=== PATIENT | female | born 1950 | race Caucasian/White ===

== ENCOUNTER 2018-04-21 20:49 | Observation (INO) | payer OTHER ==
[2018-04-21] MEDS ORDERED: MAG HYDROX/AL HYDROX/SIMETH 30 ML UNIT-DOSE CUP PO ONE (21:40)
--- NOTE | 2018-04-21 21:47 | PDOC ---
Attending Attestation - HPI HPI: 04/21/18 22:13 The patient is a 67 year old female with a significant PMH of HTN, HLD, GERD, and anxiety who presents to the emergency department with, pressure to the top of her head, malaise, fatigue and tingling to her left toes today. Patient states she was started on a course of cipro on 03/21 for a UTI. Patient reports she continued to have symptoms after and went back to the clinic and was prescribed flucanazole. Patient notes she was feeling better until three days ago when she suddenly began experiencing pressure to her lower abdomen. Patient states she took a nap today and woke up two hours ago feeling a pressure to the top of her head, tingling to her left toes, malaise, fatigued, and reports fever and chills. The patient denies chest pain, shortness of breath, and dizziness. Denies nausea, vomit, diarrhea and constipation. Denies dysuria, frequency, urgency and hematuria. Allergies: NKA Past surgical history: None reported. Social history: No reported alcohol, drug, or cigarette use. PCP: Dr. Fang <Janet Ahmadi - Last Filed: 04/21/18 22:14> - Resident Resident Name: Delfin Mejia - ED Attending Attestation I have performed the following: I have examined & evaluated the patient, The case was reviewed & discussed with the resident, I agree w/resident's findings & plan - Physicial Exam PE: 04/22/18 03:13 Agree with resident exam. Pt has generalized malaise. Heart sounds normal. Abd soft NT, ND. Pt has some epigastric malaise. Pt has no fever and no chills. She has clear lungs. Neurologically intact. - Medical Decision Making 04/22/18 00:49 Pt has an elevated CPK and CKMB. Pt has no trop elevation at this time. However, she will be monitored tonight for her symptoms of feeling generalized malaise. Pt is refusing EKGs as she states that she is allergic to the gel on the EKG stickers. I cannot force her to have an EKG. We will admit the patient to medicine Obs for serial cardiac markers <Kellie Alejandro - Last Filed: 04/22/18 03:14>
[2018-04-21] MEDS ORDERED: MAG HYDROX/AL HYDROX/SIMETH 30 ML UNIT-DOSE CUP ONE (22:00)
--- NOTE | 2018-04-21 22:16 | PDOC ---
History of Present Illness - General Chief Complaint: Weakness Stated Complaint: Weakness Time Seen by Provider: 04/21/18 21:38 History Source: Patient, Spouse - History of Present Illness Initial Comments: 67 y/o F w/PMH of HTN, HLD, GERD, osteoporosis presents to the ER for weakness. She was treated for UTI and yeast infection and finished her abx and fluconazole 2 days ago. 3 days ago pt reported having lower abdominal pressure but denies any dysuria, frequency, blood in urine. Pressure continued to increase w/o urinary symptoms until presentation. She was mainly concerned though with onset of head pressure, GERD like symptoms, L toes tingling, fevers , chills, nausea, one episode of small amount of vomit with very little blood, and generalized weakness after waking up from her nap 2 hours ago. She denies arm or leg weakness, slurred speech, confusion, facial droop, CP, SOB, dizziness , cough, sick contacts, diarrhea, constipation, blood in stool, LE edema. Pt went to [facility] for 3 months and returned on March 08. PMH: HTN, HLD, GERD, osteoporosis PSHx: hysterectomy SH: Smoked when she was "very young", no alcohol, no drugs Allergies: Codeine, Lactose Past History - Travel Traveled outside of the country in the last 30 days: No - Past Medical History Allergies/Adverse Reactions: Allergies Allergy/AdvReac Type Severity Reaction Status Date / Time codeine [Codeine] Allergy Severe Verified 04/21/18 22:04 lactose Allergy Severe Verified 04/21/18 22:04 ANIMALS Allergy Severe Swelling Uncoded 04/21/18 22:04 TAPE Allergy Intermediate Uncoded 04/21/18 22:04 Home Medications: Ambulatory Orders Amlodipine Besylate/Benazepril [Lotrel 5-20 mg Capsule] 1 each PO DAILY Calcium Carbonate/Vitamin D3 [Calcium 600+D Softgel] 1 each PO DAILY 11/19/12 Multivit-Min/FA/Lycopene/Lut [Centrum Silver Tablet] 1 each PO DAILY 11/19/12 Losartan Potassium 50 mg PO DAILY 04/21/18 Simvastatin 10 mg PO DAILY 04/21/18 Anemia: No Asthma: No Cancer: No Cardiac Disorders: No CVA: No COPD: No CHF: No Dementia: No Diabetes: No GI Disorders: Yes (ACID REFLUX) Disorders: No HTN: Yes Hypercholesterolemia: Yes Liver Disease: No Seizures: No Thyroid Disease: No - Surgical History Abdominal Surgery: Yes (uterus, rectal , and bladder prolapse repair) Appendectomy: No Cardiac Surgery: No Cholecystectomy: No Lung Surgery: No Neurologic Surgery: No Orthopedic Surgery: Yes (RT SHOULDER SURGERY) - Suicide/Smoking/Psychosocial Hx Smoking Status: No Smoking History: Former smoker Have you smoked in the past 12 months: No Number of Cigarettes Smoked Daily: 0 Information on smoking cessation initiated: No Hx Alcohol Use: No Drug/Substance Use Hx: No Substance Use Type: None Review of Systems - Review of Systems Able to Perform ROS?: Yes Constitutional: Yes: Chills, Fever, Weakness Respiratory: No: Cough, Shortness of Breath Cardiac (ROS): Yes: Chest Pain (Burning up sternum/esophagus). No: Edema, Chest Tightness ABD/GI: Yes: Other (Lower abdominal pressure) : No: Burning, Dysuria, Frequency Neurological: No: Dizziness *Physical Exam - Vital Signs Last Vital Signs Temp Pulse Resp BP Pulse Ox 98.5 F 84 18 156/74 99 04/21/18 20:50 04/21/18 20:50 04/21/18 20:50 04/21/18 20:50 04/21/18 20:50 - Physical Exam General Appearance: Yes: Nourished, Appropriately Dressed. No: Apparent Distress HEENT: positive: EOMI, Normal Voice Neck: positive: Supple Respiratory/Chest: positive: Lungs Clear, Normal Breath Sounds. negative: Respiratory Distress Cardiovascular: positive: Regular Rhythm, Regular Rate, S1, S2 Gastrointestinal/Abdominal: positive: Normal Bowel Sounds, Soft. negative: Tender Musculoskeletal: negative: CVA Tenderness, CVA Tenderness (R), CVA Tenderness (L ) Extremity: negative: Pedal Edema, Swelling Neurologic: positive: vacuum caster II-XII NML intact, Fully Oriented, Alert ED Treatment Course - LABORATORY CBC & Chemistry Diagram: 04/21/18 22:40 04/21/18 22:40 - Medications Given in the ED: ED Medications Discontinued Medications Generic Name Dose Route Start Last Admin Trade Name Freq PRN Reason Stop Dose Admin Al Hydroxide/Mg Hydroxide 30 ml 04/21/18 21:40 04/21/18 22:00 Mylanta Oral Suspension - PO 04/21/18 21:41 30 ml ONCE ONE Administration Medical Decision Making - Medical Decision Making 04/21/18 22:15 R/o [place], UTI, Flu -Ordered CBC, CMP, UA, UCx, BCx, LA, CXR PA/Lat, Flu swab. 04/21/18 22:39 -Pt reports feeling better after being given mylanta. 04/21/18 23:18 -CBC and CMP unremarkable. Trop negative. -CXR with no acute pathology noted. -UA pending. 04/22/18 00:46 Pt refused EKG. She states she had a reaction to the adhesive for EKGs in the past and would not like the EKG. UA negative. CK elevated 219 CKMB elevated 3.9 Trop negative To be placed in tele obs to rule out ACS. Microblog sent out to the [facility] Admitting. 04/22/18 01:36 Case signed out to Dr. Carlitos Coyne. Pt to be placed in tele obs. *DC/Admit/Observation/Transfer Diagnosis at time of Disposition: Chest pain - Discharge Dispostion Condition at time of disposition: Fair Decision to Admit order: Yes - Referrals Referrals: Femi Mesa MD [Primary Care Provider] - - Patient Instructions - Post Discharge Activity
[2018-04-21 22:43] LABS: BASO % 0.7 % (0-2.0); EOS % 1.7 % (0-4.5); HEMATOCRIT 41.6 % (32.4-45.2); HEMOGLOBIN 13.9 GM/dL (10.7-15.3); LYMPH % 17.1 % (8-40); MCH 29.5 pg (25.7-33.7); MCHC 33.4 g/dl (32.0-36.0); MEAN CELL VOLUME 88.2 fl (80-96); MEAN PLT VOLUME 9.4 fl (7.5-11.1); MONO % 7.4 % (3.8-10.2); NEUT % 73.1 % (42.8-82.8); PLATELET COUNT 258 K/MM3 (134-434); RBC 4.71 M/mm3 (3.60-5.2); RDW 13.1 % (11.6-15.6); WHITE BLOOD COUNT 7.2 K/mm3 (4.0-10.0)
[2018-04-21 23:13] LABS: ALBUMIN 4.2 g/dl (3.4-5.0); ALK PHOS 84 U/L (45-117); ANION GAP 10 MMOL/L (8-16); BILIRUBIN,TOTAL 0.8 mg/dL (0.2-1); BLOOD UREA NITROGEN 13 mg/dL (7-18); CALCIUM 9.1 mg/dL (8.5-10.1); CHLORIDE 100 mmol/L (98-107); CO2 27 mmol/L (21-32); CREATININE 0.6 mg/dL (0.55-1.3); GLUCOSE,RANDOM 116 mg/dL (74-106); POTASSIUM 3.7 mmol/L (3.5-5.1); SGOT/AST 32 U/L (15-37); SGPT/ALT 41 U/L (13-61); SODIUM 137 mmol/L (136-145); TOT PROT 7.8 g/dl (6.4-8.2)
[2018-04-21 23:19] LABS: URINE APPEARANCE CLEAR; URINE BILIRUBIN NEGATIVE (<2.0 mg/dL); URINE COLOR COLORLESS; URINE GLUCOSE (UA) NEGATIVE (NEGATIVE); URINE KETONE NEGATIVE (NEGATIVE); URINE LEUK ESTERASE NEGATIVE (NEGATIVE); URINE NITRITE NEGATIVE (NEGATIVE); URINE PROTEIN NEGATIVE (NEGATIVE); URINE UROBILINOGEN NEGATIVE mg/dL (0.2-1.0)
--- NOTE | 2018-04-22 01:08 | PN ---
Teaching Attending Note Name of Resident: Kandy Leiva ATTENDING PHYSICIAN STATEMENT I saw and evaluated the patient. I reviewed the resident's note and discussed the case with the resident. I agree with the resident's findings and plan as documented. SUBJECTIVE: Patient is a 67 year old woman with PMH of HTN, HLD, GERD, osteoporosis presents to the ER for weakness. She was treated for UTI and yeast infection and finished her antibiotics and fluconazole 2 days ago. 3 days ago patient reported having lower abdominal pressure but denies any dysuria, frequency, blood in urine. Pressure continued to increase w/o urinary symptoms until presentation. She was mainly concerned though with onset of head pressure, GERD like symptoms, L toes tingling, fevers, chills, nausea, one episode of small amount of vomit with very little blood, and generalized weakness after waking up from her nap 2 hours ago. She denies arm or leg weakness, slurred speech, confusion, facial droop, CP, SOB, cough, sick contacts, diarrhea, constipation, blood in stool, LE edema. Says she has been dizzy with brief bout of SOB as per . She went to [facility] for 3 months and returned on March 08. OBJECTIVE: Alert Vital Signs Period Temp Pulse Resp BP Sys/Murray Pulse Ox Last 24 Hr 98.3 F-98.5 F 75-84 18-18 126-156/70-74 98-99 HEENT: No Jaundice, eye redness or discharge, PERRLA, EOMI. Normocephalic, atraumatic. External ears are normal and hearing is grossly intact. No nasal discharge. Neck: Supple, nontender. No palpable adenopathy or thyromegaly. No JVD Chest: Good effort. Clear to auscultation and percussion. Heart: Regular. No S3, rub or murmur Abdomen: Not distended, soft, nontender and no HSM. No rebound or guarding. Normoactive bowel sounds. Ext: Peripheral pulses intact. No leg edema. Skin: Warm and dry. No petechiae, rash or ecchymosis. Neuro: Alert. Oriented x3. CN 2-12 grossly intact. Sensation grossly intact in all four extremities and DTR are symmetric. Home Medications Medication Instructions Recorded Amlodipine Besylate/Benazepril 1 each PO DAILY 11/19/12 [Lotrel 5-20 mg Capsule] Calcium Carbonate/Vitamin D3 1 each PO DAILY 11/19/12 [Calcium 600+D Softgel] Multivit-Min/FA/Lycopene/Lut 1 each PO DAILY 11/19/12 [Centrum Silver Tablet] Losartan Potassium 50 mg PO DAILY 04/21/18 Simvastatin 10 mg PO DAILY 04/21/18 Abnormal Lab Results 04/21/18 04/21/18 22:40 23:12 Random Glucose 116 H Creatine Kinase 219 H CK-MB (CK-2) 3.9 H Ur Specific [place] 1.003 L ASSESSMENT AND PLAN: 1. Dizziness and weakness - No evidence of active infection or incompletely treated UTI. For elevated CK-MB and nonspecific changes on EKG, will admit to telemetry to rule out ACS, though initial troponin is negative. Get ECHO, head CT and carotid doppler. 2. DVT prophylaxis - Lovenox 40 mg SQ q 24 hours. 3. Advance directives - Full code
--- NOTE | 2018-04-22 04:54 | HP ---
CHIEF COMPLAINT: dizziness and lower abdominal pain PCP: Dr. Fang HISTORY OF PRESENT ILLNESS: 67F w/ pmhx of HTN, HLD, GERD, anxiety presents w/ complaints of dizziness and lower abdominal pain. Pt states that she drank cranberry juice for the first time, laid down, and started to experience dizziness, chills, and nausea. Afterwards, she stood up to start cooking, then started experiencing some head pressure/discomfort. During this time, her was with her and stated she had the chills and was sob. Pt also admits to neck pain and lower abdominal pain. Denies vision changes, fever, vomiting, urinary/bowel symptoms, leg swelling, problems walking. ER course was notable for: (1) CK 219, CK-MB 3.9, Trop <0.02 (2) Mylanta given (3) Blood/urine cultures ordered Recent Travel: Recently traveled [facility], returned 02/23 PAST MEDICAL HISTORY: HLD HTN GERD Anxiety PAST SURGICAL HISTORY: Abdominal hysterectomy Lumpectomy in b/l breasts R shoulder sx Social History: Smoking: Former smoker, hasn't smoked in many years Alcohol: Denies Drugs: Denies Family History: Sister: Brain aneurysm, heart disease Older sister: heart disease Allergies codeine [Codeine] Allergy (Severe, Verified 04/21/18 22:04) " CHILLS " lactose Allergy (Severe, Verified 04/21/18 22:04) CHILLS ANIMALS Allergy (Severe, Uncoded 04/21/18 22:04) Swelling TAPE Allergy (Intermediate, Uncoded 04/21/18 22:04) SKIN IS SENSITIVE. HOME MEDICATIONS: Home Medications Medication Instructions Recorded Losartan Potassium 50 mg PO BID 04/21/18 Simvastatin 10 mg PO DAILY 04/21/18 Amlodipine Besylate 10 mg PO DAILY 04/22/18 REVIEW OF SYSTEMS CONSTITUTIONAL: +chills Absent: fever, diaphoresis, generalized weakness, malaise, loss of appetite, weight change HEENT: Absent: rhinorrhea, nasal congestion, throat pain, throat swelling, difficulty swallowing, mouth swelling, ear pain, eye pain, visual changes CARDIOVASCULAR: Absent: chest pain, syncope, palpitations, irregular heart rate, lightheadedness , peripheral edema RESPIRATORY: Absent: cough, shortness of breath, dyspnea with exertion GASTROINTESTINAL: abdominal pain Absent: abdominal distension, nausea, vomiting, diarrhea, constipation, melena, hematochezia GENITOURINARY: Absent: dysuria, frequency, urgency, hesitancy, hematuria, flank pain, genital pain MUSCULOSKELETAL: +neck pain Absent: myalgia, arthralgia, joint swelling, back pain, ENDOCRINE: Absent: unexplained weight gain, unexplained weight loss, heat intolerance, cold intolerance NEUROLOGIC: +head pressure, dizziness Absent: headache, focal weakness or paresthesias,, unsteady gait, bladder or bowel incontinence PSYCHIATRIC: Absent: anxiety, depression, suicidal or homicidal ideation, hallucinations. PHYSICAL EXAMINATION Vital Signs - 24 hr 04/21/18 04/21/18 20:50 23:39 Temperature 98.5 F 98.3 F Pulse Rate 84 Pulse Rate [ 75 Left Radial] Respiratory 18 18 Rate Blood Pressure 156/74 Blood Pressure 126/70 [Right Arm] O2 Sat by Pulse 99 98 Oximetry (%) GENERAL: AAOx3. NAD. Resting comfortably. HEENT: AT/NC. EOMI. YOSELIN. Moist mucus membranes. NECK: Supple, no LAD/JVD. No point tenderness. LUNGS: CTA B/L. No w/r/r noted. Symmetric chest rise. No accessory muscle use. HEART: RRR. Normal S1, S2. No murmurs noted. ABDOMEN: Soft, ND. Tender to deep palpation below umbilicus. +BS in all 4 Q's. No masses or bruits noted. MUSCULOSKELETAL: No pedal edema. 5/5 muscle strength in b/l u/l extremities. NEUROLOGICAL: Normal speech. CN II-XII intact. PSYCHIATRIC: Cooperative. Good eye contact. Appropriate mood and affect. SKIN: Warm, dry, normal turgor, normal capillary refill. Laboratory Results - last 24 hr 04/21/18 04/21/18 04/21/18 22:40 22:40 22:40 WBC 7.2 RBC 4.71 Hgb 13.9 Hct 41.6 MCV 88.2 MCH 29.5 MCHC 33.4 RDW 13.1 Plt Count 258 MPV 9.4 Absolute Neuts (auto) 5.3 Neutrophils % 73.1 D Lymphocytes % 17.1 D Monocytes % 7.4 D Eosinophils % 1.7 D Basophils % 0.7 D Nucleated RBC % 0 Sodium 137 Potassium 3.7 Chloride 100 Carbon Dioxide 27 Anion Gap 10 BUN 13 Creatinine 0.6 Creat Clearance w eGFR > 60 Random Glucose 116 H Lactic Acid 1.2 Calcium 9.1 Total Bilirubin 0.8 AST 32 ALT 41 Alkaline Phosphatase 84 Creatine Kinase 219 H Creatine Kinase Index 1.7 CK-MB (CK-2) 3.9 H Troponin I < 0.02 Total Protein 7.8 Albumin 4.2 Urine Color Urine Appearance Urine pH Ur Specific [place] Urine Protein Urine Glucose (UA) Urine Ketones Urine Blood Urine Nitrite Urine Bilirubin Urine Urobilinogen Ur Leukocyte Esterase 04/21/18 23:12 WBC RBC Hgb Hct MCV MCH MCHC RDW Plt Count MPV Absolute Neuts (auto) Neutrophils % Lymphocytes % Monocytes % Eosinophils % Basophils % Nucleated RBC % Sodium Potassium Chloride Carbon Dioxide Anion Gap BUN Creatinine Creat Clearance w eGFR Random Glucose Lactic Acid Calcium Total Bilirubin AST ALT Alkaline Phosphatase Creatine Kinase Creatine Kinase Index CK-MB (CK-2) Troponin I Total Protein Albumin Urine Color Colorless Urine Appearance Clear Urine pH 7.0 Ur Specific [place] 1.003 L Urine Protein Negative Urine Glucose (UA) Negative Urine Ketones Negative Urine Blood Negative Urine Nitrite Negative Urine Bilirubin Negative Urine Urobilinogen Negative Ur Leukocyte Esterase Negative ASSESSMENT/PLAN: 67F w/ pmhx of HTN, HLD, GERD, anxiety presents w/ complaints of dizziness and lower abdominal pain. #Dizziness; Elevated CK-MB, initial trops neg; r/o possible ACS -Echo ordered -Head CT ordered to r/o intracranial pathology that may be cause of dizziness -Carotid dopplers ordered -Repeat trops/EKG ordered in AM #HTN Resume home meds: -Losartan 50 mg PO BID -Amlodipine Besylate 10 mg QD #HLD Resume home meds: -Simvastatin 10 mg PO QD #Osteopenia -Pt takes Alendronate weekly; dose needs clarification #DVT Ppx -Lovenox 40 mg SQ QD #FEN -no IVf needed -recheck lytes in AM -Sodium-controlled diet dispo -admit to tele obs Visit type - Emergency Visit Emergency Visit: Yes ED Registration Date: 04/22/18 Care time: The patient presented to the Emergency Department on the above date and was hospitalized for further evaluation of their emergent condition. - New Patient This patient is new to me today: Yes Date on this admission: 04/22/18 - Critical Care Critical Care patient: No
[2018-04-22] MEDS ORDERED: ACETAMINOPHEN INJECTION 100 ML IVPB ONE (05:40)
[2018-04-22 06:43] LABS: BASO % 0.7 % (0-2.0); EOS % 1.7 % (0-4.5); HEMATOCRIT 39.3 % (32.4-45.2); HEMOGLOBIN 12.9 GM/dL (10.7-15.3); MCHC 32.9 g/dl (32.0-36.0); MEAN CELL VOLUME 88.2 fl (80-96); MONO % 7.6 % (3.8-10.2); PLATELET COUNT 248 K/MM3 (134-434); RBC 4.46 M/mm3 (3.60-5.2); RDW 13.4 % (11.6-15.6); WHITE BLOOD COUNT 7.5 K/mm3 (4.0-10.0)
[2018-04-22 08:05] LABS: ALBUMIN 3.7 g/dl (3.4-5.0); ALK PHOS 72 U/L (45-117); ANION GAP 6 MMOL/L (8-16); BILIRUBIN,TOTAL 0.9 mg/dL (0.2-1); BLOOD UREA NITROGEN 11 mg/dL (7-18); CALCIUM 9.2 mg/dL (8.5-10.1); CHLORIDE 105 mmol/L (98-107); CO2 26 mmol/L (21-32); CREATININE 0.5 mg/dL (0.55-1.3); GLUCOSE,RANDOM 87 mg/dL (74-106); POTASSIUM 3.9 mmol/L (3.5-5.1); SGOT/AST 23 U/L (15-37); SGPT/ALT 37 U/L (13-61); SODIUM 138 mmol/L (136-145)
--- NOTE | 2018-04-22 10:34 | EKG ---
Test Reason : Blood Pressure : / mmHG Vent. 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
[2018-04-22] MEDS: ENOXAPARIN NA (PORCINE) 40 MG/0.4 ML DISP.SYRIN SQ SCH (12:09)
[2018-04-22] MEDS: amLODIPine BESYLATE 10 MG TABLET (FP) PO SCH (12:09)
[2018-04-22] MEDS: LOSARTAN POTASSIUM 50 MG TABLET (FP) PO SCH ×2 (12:09→21:27)
--- NOTE | 2018-04-22 14:00 | ECHO ---
Name: JOSELYN ROA Exam:Adult Echocardiogram Study Date: 04/22/2018 12:40 PM Age: 67 yrs Reason For Study: DIZZINESS Height: 60 in Weight: 115 lb BSA: 1.5 m2 MMode/2D Measurements & Calculations IVSd: 0.69 cm Ao root diam: 2.6 cm LVIDd: 5.1 cm LA dimension: 3.6 cm LVIDs: 3.2 cm LVPWd: 0.83 cm EDV(Teich): 121.2 ml LVOT diam: 1.8 cm ESV(Teich): 41.9 ml TAPSE: 2.5 cm RV S Boni: 12.4 cm/sec Doppler Measurements & Calculations MV E max boni: 75.7 cm/sec TR max boni: 255.2 cm/sec MV A max boni: 98.0 cm/sec TR max P.0 mmHg MV E/A: 0.77 MV dec time: 0.19 sec Med Peak E' Boni: 6.0 cm/sec Med E/e': 12.7 Lat Peak E' Boni: 8.2 cm/sec Lat E/e': 9.3 Procedure A complete two-dimensional transthoracic echocardiogram was performed (2D, M-mode, Doppler and color flow Doppler). Left Ventricle The left ventricle is normal in size. Left ventricular systolic function is normal. Ejection Fraction = 60- 65%. E/A reversal mitral inflow with TDI revealing impaired relaxation and normal filling pressure (E /E' 13). No regional wall motion abnormalities noted. Right Ventricle The right ventricle is normal size. The right ventricular systolic function is normal. RV systolic TD I is 12 cm/s. Atria The left atrial size is normal. Right atrial size is normal. Mitral Valve The mitral valve is normal in structure and function. There is no mitral regurgitation noted. Tricuspid Valve The tricuspid valve is normal in structure and function. There is mild tricuspid regurgitation. Pulmo nary artery systolic pressure is at least 29 mmHg assuming RA pressure of 3 mmHg (normal IVC with >50% col lapse). Aortic Valve The aortic valve is normal in structure and function. No aortic regurgitation is present. Pulmonic Valve The pulmonic valve is not well visualized. Great Vessels The aortic root is normal size. Pericardium/Pleura There is no pericardial effusion. Interpretation Summary The left ventricle is normal in size. Left ventricular systolic function is normal. No regional wall motion abnormalities noted. Ejection Fraction = 60-65%. E/A reversal mitral inflow with TDI revealing impaired relaxation and normal filling pressure (E/E' 1 3) The right ventricular systolic function is normal. The left atrial size is normal. Right atrial size is normal. There is mild tricuspid regurgitation. Pulmonary artery systolic pressure is at least 29 mmHg assuming RA pressure of 3 mmHg (normal IVC wit h >50% collapse) There is no pericardial effusion. Previous study is not available for comparison Faisal Contreras MD 04/22/2018 02:00 PM
--- NOTE | 2018-04-22 14:26 | EKG ---
Test Reason : Blood Pressure : / mmHG Vent. 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
[2018-04-22 21:30] VITALS: BMI 21.9
[2018-04-22] MEDS ORDERED: ATORVASTATIN CA 10 MG TABLET (FP) PO SCH (22:00)
[2018-04-23] MEDS: amLODIPine BESYLATE 10 MG TABLET (FP) PO SCH (09:44)
[2018-04-23] MEDS: ENOXAPARIN NA (PORCINE) 40 MG/0.4 ML DISP.SYRIN SQ SCH (09:44)
[2018-04-23] MEDS: LOSARTAN POTASSIUM 50 MG TABLET (FP) PO SCH (09:44)
--- NOTE | 2018-04-23 10:15 | CON.CARD ---
Consult Consult Specialty:: Cardiology Referred by:: Hospitalist Reason for Consultation:: diastolic dysfunction - History of Present Illness Chief Complaint: abdominal pain, dizziness History of Present Illness: 67 year old woman with pmh HTN, HLD, GERD, anxiety admitted with dizziness and abdominal pain. Echo was done showing normal LV systolic function with impaired LV relaxation, no other sig structural heart disease. pt [facility]. states she was on antibiotics for about 2 weeks for a bladder infection. denies chest pain, sob, palpitations, pnd, orthopnea, LE edema, syncope, or near syncope. - History Source History Provided By: Patient Limitations to Obtaining History: No Limitations - Past Medical History Cardio/Vascular: Yes: HTN, Hyperlipdemia Gastrointestinal: Yes: GERD Psych: Yes: Anxiety - Alcohol/Substance Use Hx Alcohol Use: No - Smoking History Smoking history: Former smoker Have you smoked in the past 12 months: No Aproximately how many cigarettes per day: 0 - Social History Usual Living Arrangement: With Spouse History of Recent Travel: No Home Medications - Allergies Allergies/Adverse Reactions: Allergies Allergy/AdvReac Type Severity Reaction Status Date / Time codeine [Codeine] Allergy Severe Verified 04/21/18 22:04 lactose Allergy Severe Verified 04/21/18 22:04 ANIMALS Allergy Severe Swelling Uncoded 04/21/18 22:04 TAPE Allergy Intermediate Uncoded 04/21/18 22:04 - Home Medications Home Medications: Ambulatory Orders Losartan Potassium 50 mg PO BID 04/21/18 Simvastatin 10 mg PO DAILY 04/21/18 Amlodipine Besylate 10 mg PO DAILY 04/22/18 Family Disease History - Family Disease History Family History: Denies Review of Systems - Review of Systems Constitutional: reports: Chills. denies: No Symptoms, Diaphoresis, Fever, Lethargy, Loss of Appetite, Malaise, Night Sweats, Unintentional Wgt. Loss, Weakness, Other Eyes: denies: No Symptoms, Blind Spots, Blurred Vision, Double Vision, Eye Pain , Floaters, Photophobia, Recent Change in Vision, Other HENT: denies: No Symptoms, Difficult Swallowing, Ear Discharge, Ear Pain, Epistaxis, Gingival Bleeding, Hearing Loss, Mouth Swelling, Nasal Congestion, Ocular Prosthesis, Throat Pain, Toothache, Ringing in Ears, Other Neck: denies: No Symptoms, Decreased ROM, Lumps, Pain on Movement, Stiffness, Swollen Glands, Tenderness, Other Cardiovascular: denies: No Symptoms, Chest Pain, Edema, Palpitations, Shortness of Breath, Other Respiratory: denies: No Symptoms, Cough, Exercise Intolerance, Hemoptysis, Orthopnea, PND, Snoring, SOB, SOB on Exertion, Wheezing, Other Gastrointestinal: reports: Abdominal Pain. denies: No Symptoms, Bloating, Constipation, Diarrhea, Dysphagia, Indigestion, Melena, Nausea, Rectal Bleeding , Vomiting, Vomiting Blood, Other Genitourinary: denies: No Symptoms, Burning, Discharge, Dysuria, Flank Pain, Frequency, Hematuria, Incontinence, Lesions, Menses, Pain, Testicular Mass, Testicular Pain, Testicular Swelling, Urgency, Vaginal Bleeding, Other Breasts: denies: No Symptoms Reported, See HPI, Breast Implants, Discharge from Nipple, Lumps, Pain, Skin Changes, Other Musculoskeletal: denies: No Symptoms, Back Pain, Crepitus, Decreased ROM, Extremity Pain, Joint Pain, Joint Swelling, Muscle Pain, Muscle Cramps, Muscle Weakness, Other Integumentary: denies: No Symptoms, Blister, Bruising, Change in Color, Eczema, Erythema, Incision, Lesions, Lump, Pallor, Pruritis, Rash, Wound, Other Neurological: reports: Dizziness. denies: No Symptoms, Change in LOC, Change in Speech, Confusion, Headache, Incoordination, Numbness, Parasthesia, Pre- Existing Deficit, Seizure, Syncope, Tremors, Unsteady Gait, Weakness, Other Endocrine: denies: No Symptoms, Excessive Sweating, Flushing, Increased Hunger, Increased Thirst, Intolerance to Cold, Intolerance to Heat, Unexplained Weight Gain, Unexplained Weight Loss, Other Hematology/Lymphatic: denies: No Symptoms, Easily Bruised, Excessive Bleeding, Swollen Glands, Other Psychiatric: denies: No Symptoms, Altered Sleep Pattern, Anxiety, Depression, Hallucinations, Panic, Paranoia, Suicidal, Other - Risk Factors Known Risk Factors: Yes: Age, Hypercholesterolemia, Hypertension Vital Signs: Vital Signs Temperature 98.1 F 04/23/18 05:15 Pulse Rate 73 04/23/18 05:15 Respiratory Rate 20 04/23/18 05:15 Blood Pressure 129/53 L 04/23/18 05:15 O2 Sat by Pulse Oximetry (%) 97 04/22/18 20:30 Constitutional: Yes: Well Nourished, No Distress, Calm Eyes: Yes: WNL, Conjunctiva Clear, EOM Intact HENT: Yes: WNL, Atraumatic, Normocephalic Neck: Yes: WNL, Supple, Trachea Midline Respiratory: Yes: WNL, Regular, CTA Bilaterally. No: Rales, Rhonchi, SOB, Wheezes Gastrointestinal: Yes: WNL, Normal Bowel Sounds, Soft. No: Distention, Tenderness Renal/: Yes: WNL Cardiovascular: Yes: WNL, Regular Rate and Rhythm. No: Bradycardia, Tachycardia , Pulse Irregular, Gallop, Rub, Varicosities JVD: No Carotid Bruit: No PMI: Non-Displaced Heart Sounds: Yes: S1, S2. No: Split S2, S3, S4, Clicks, Gallop, Rub, Bruit Murmur: No: Systolic Murmur, Diastolic Murmur Musculoskeletal: Yes: WNL Extremities: Yes: WNL Edema: No Peripheral Pulses WNL: Yes Peripheral Pulses: 2+ Left Doralis Pedis, 2+ Right Dorsalis Pedis Integumentary: Yes: WNL Neurological: Yes: Alert, Oriented ...Motor Strength: WNL Psychiatric: Yes: WNL, Alert, Oriented - Other Data Labs, Other Data: CBC, BMP 04/22/18 06:00 04/22/18 06:00 nsr 73bpm, possible inferior infarct although does not meet strict criteria Echo: Report Reviewed Imaging - Results Chest X-ray: Report Reviewed, Image Reviewed EKG: Report Reviewed, Image Reviewed Other: Report Reviewed, Image Reviewed (tele-nsr, no arrhythmias) Assessment/Plan 67 year old woman with pmh HTN, HLD, GERD, anxiety admitted with dizziness and abdominal pain. Echo was done showing normal LV systolic function with impaired LV relaxation, no other sig structural heart disease. states she was on antibiotics for about 2 weeks for a bladder infection. No chest pain, sob, palpitations. Stage I diastolic dysfunction -would not causes symptoms -likely related to HTN -no additional inpatient work up is needed -can be followed as outpatient Dizziness-likely related to abdominal discomfort, abx and infection, possible vasovagal episode -nsr on ekg -no arrhyhmias on tele -echo showed normal LV systolic function and no sig valvular abnl, no pericardial effusion -carotid doppler showed plaque with no sig stenosis -no additional inpatient cardiac work up is needed at this time Abnormal ekg -possible inferior infarct, but does not quite meet strict criteria -normal LV systolic function on echo -cardiac enzymes wnl -no additional inpatient cardiac work up needed Ok to dc tele Pt can be followed as outpatient. Please call with any additional questions.
--- NOTE | 2018-04-23 12:27 | DS ---
Physical Exam: SUBJECTIVE: Patient seen and examined at the bedside. All her symptoms have resolved. no shortness of breath. no chest pain. Ambulated with me from her room to the nursing station and back, no assistive deviced. was steady. denies dizziness or shortness of breath. OBJECTIVE: discharge home Vital Signs Period Temp Pulse Resp BP Sys/Murray Pulse Ox Last 24 Hr 97.8 F-99.2 F 67-80 16-20 94-140/53-84 97-100 PHYSICAL EXAM GENERAL: The patient is awake, alert, and fully oriented, in no acute distress. HEAD: Normal with no signs of trauma. EYES: PERRL, extraocular movements intact, sclera anicteric, conjunctiva clear. ENT: Ears normal, nares patent, oropharynx clear without exudates, moist mucous membranes. NECK: Trachea midline, full range of motion, supple. LUNGS: Breath sounds equal, clear to auscultation bilaterally HEART: Regular rate and rhythm, ABDOMEN: Soft, nontender, nondistended, normoactive bowel sounds, no guarding, no rebound, no hepatosplenomegaly, no masses. EXTREMITIES: 2+ pulses, warm, well-perfused, no edema. NEUROLOGICAL: Cranial nerves II through XII grossly intact. Normal speech, gait not observed. PSYCH: Normal mood, normal affect. SKIN: Warm, dry, normal turgor, no rashes or lesions noted. HOSPITAL COURSE BY PROBLEM LIST: Date of Admission:04/22/18 Date of Discharge: 04/23/18 Patient is a 67 year old female with a significant past medical history of HTN, HLD, GERD, anxiety who presents to the ED with c/o of dizziness and lower abdominal pain. Denies vision changes, fever, vomiting, urinary/bowel symptoms, leg swelling, problems walking. Cardiology: Dizziness, resolved. Cardiac workup negative. Ruled out for ACS. Patient to continue cardiac workup as an outpatient. Steady gait on discharge. Ambulated without further dizziness or lightheadedness. Vitals stable. Elevated ck-mb on admission, now within normal limits. Head CT negative. Echo showed normal LV systolic function with no sig valvular abnormality or pericardial effusion carotid doppler with plaque but no significant stenosis Hypertension, controlled. Continue Losartan 50mg bid, Norvasc 10mg daily HLD, controlled on Lipitor. GI: Abdominal pain, resolved. tolerating diet, no further abdominal pain. GERD, no acute issues Psyche: Anxiety, continue home meds. full code Stable for home discharge with close follow up with cardiology. Patient and aware of discharge plan and in agreement. Minutes to complete discharge: 60 Discharge Summary Reason For Visit: CHEST PAIN Current Active Problems Chest pain (Acute) Condition: Improved - Instructions Diet, Activity, Other Instructions: Mrs. Almanza: You were placed under observation on 04/22/2018 for chest pain, chest pressure and dizziness. All your cardiac testing was negative. We encourage you to see your primary care doctor within 1 week after discharge and continue to stay hydrated. Dr Jenkins, the gum mixer who saw you at the hospital would like to see you again. Please make an appointment with him within 2 weeks after you are discharged. He may order additional testing. Continue taking all of your home medications. We have not ordered any new medications for your. Thank you for allowing us to care for you. Referrals: Femi Mesa MD [Primary Care Provider] - 1 Week Jose Jenkins MD [Staff Physician] - 1 Week Disposition: HOME - Home Medications Comprehensive Discharge Medication List: Ambulatory Orders Losartan Potassium 50 mg PO BID 04/21/18 Simvastatin 10 mg PO DAILY 04/21/18 Amlodipine Besylate 10 mg PO DAILY 04/22/18 This patient is new to me today: Yes Date on this admission: 04/23/18 Emergency Visit: Yes ED Registration Date: 04/22/18 Care time: The patient presented to the Emergency Department on the above date and was hospitalized for further evaluation of their emergent condition. Critical Care patient: No - Discharge Referral Referred to [facility] No
[2018-04-23 12:59] VITALS: TEMP 99.8
[2018-04-23 13:01] VITALS: BP 134/71; PULSE 71
== END 2018-04-23 14:43 | disposition home or self-care (01) ==
LOC: JER 20:49 → JERBED 04-22 01:59 → J4W 04-22 19:30
PROVIDERS: ADMIT Internal Medicine; ATTEND Nurse Practitioner Family
PROC: 3E013GC Introduction of Other Therapeutic Substance into Subcutaneous Tissue, Percutaneous Approach (ICD-10-PCS; principal; 2018-04-22)
DX: R07.9 Chest pain, unspecified (principal); R53.1 Weakness; I11.9 Hypertensive heart disease without heart failure; E78.5 Hyperlipidemia, unspecified; K21.9 Gastro-esophageal reflux disease without esophagitis; F41.9 Anxiety disorder, unspecified; M81.0 Age-related osteoporosis without current pathological fracture; M85.80 Other specified disorders of bone density and structure, unspecified site; R74.8 Abnormal levels of other serum enzymes; R42 Dizziness and giddiness; R94.31 Abnormal electrocardiogram [ECG] [EKG]; Z87.891 Personal history of nicotine dependence; Z91.011 Allergy to milk products; Z88.6 Allergy status to analgesic agent
CPT/HCPCS: 36415; 70450-TC; 71046-TC-FY; 80053; 81003; 82550; 82553; 83605; 84484; 85025; 87040; 87086; 87804; 93005; 93010; 93306-TC; 93880-TC; 96372; 99285-25; G0378

== ENCOUNTER 2018-11-11 12:10 | Emergency (ER) | payer OTHER ==
[2018-11-11 12:47] VITALS: BMI 31.2
--- NOTE | 2018-11-11 13:16 | PDOC ---
Documentation entered by Bill Hunter SCRIBE, acting as scribe for Juliette Burgess MD. Juliette Burgess MD: This documentation has been prepared by the mengibeDale Daniel, SCRIBE, under my direction and personally reviewed by me in its entirety. I confirm that the documentation accurately reflects all work, treatment, procedures, and medical decision making performed by me. Attending Attestation - Resident Resident Name: NeemaCindi - ED Attending Attestation I have performed the following: I have examined & evaluated the patient, The case was reviewed & discussed with the resident, I agree w/resident's findings & plan, Exceptions are as noted - HPI HPI: 11/11/18 13:13 The patient is a 68 year old female with a past medical history of HTN, HLD, and GERD here today for evaluation of lightheadedness. The patient reports that she has had two episodes of lightheadedness. The first episode was on sunday (11/08/18) when she was walking up the stairs. She reports falling backwards, hitting head with no loss of consciousness, and getting up after the fall. Her second episode happened this morning and she called her PCP who had her come in for evaluation. Patient denies headache. Denies fever, chills. Denies chest pain, shortness of breath. Denies nausea, vomiting, diarrhea, abdominal pain. Allergies: Femi Bonita PCP: codeine, lactose - Physicial Exam PE: GENERAL: Awake, alert, and fully oriented, in no acute distress HEAD: No signs of trauma EYES: PERRLA, EOMI, sclera anicteric, conjunctiva clear ENT: Auricles normal inspection, hearing grossly normal, nares patent, oropharynx clear without exudates. Moist mucosa NECK: Normal ROM, supple, no lymphadenopathy, JVD, or masses LUNGS: Breath sounds equal, clear to auscultation bilaterally. No wheezes, and no crackles HEART: Regular rate and rhythm, normal S1 and S2, no murmurs, rubs or gallops ABDOMEN: Soft, nontender, normoactive bowel sounds. No guarding, no rebound. No masses EXTREMITIES: Normal range of motion, no edema. No clubbing or cyanosis. No cords, erythema, or tenderness NEUROLOGICAL: Cranial nerves II through XII grossly intact. Normal speech, normal gait. Motor and sensation intact SKIN: Warm, Dry, normal turgor, no rashes. +Ecchymosis to the R hip and R buttock - Medical Decision Making Pt presents 3 days after a fall which followed an episode of dizziness. She has difficulty describing it, and it is unclear if it was vertigo (she states the room was not spinning), lightheadedness, near syncope. Exam wnl except for bruising to buttock and hip. No bony tenderness. Will obtain syncope workup and CTH/c-spine. If all wnl, poss DC home.
--- NOTE | 2018-11-11 13:16 | PDOC ---
History of Present Illness - General Chief Complaint: Injury Stated Complaint: INJURY Time Seen by Provider: 11/11/18 12:24 - History of Present Illness Initial Comments: 11/11/18 13:17 Radhika Almanza is a 68yo woman with a PMH of HTN, HLD, GERD, osteoporosis who presents with several episodes of dizziness over the past 3 days and report of a fall a few days ago. She states that on Sunday, she was starting to walk up stairs and started to feel lightheaded. She states that she felt that she was going to faint. She fell backwards down three steps, landing on her buttocks and back. She does report hitting her head but denies any LOC. She was able to get up and walk immediately after the incident. She says that she did not think that she needed to be evaluated after the fall because other than some soreness in her buttocks where she landed, she had felt well all weekend. She has not had any focal weakness, numbness/tingling, confusion, vomiting, or any other neurological symptoms. She reports some discomfort as she was concerned that she should not take any pain medication due to being told not to take aspirin following a colonoscopy last month. Today, Ms Almanza says that she was starting to make breakfast this morning when she experienced a second episode of the dizziness. She denies a fall today. She grabbed onto something to help steady herself, and the episode resolved after a minute. She called her doctor to schedule an appointment and was told to present to the ED for evaluation. Ms Almanza denies any recent fevers/chills, NIELSEN, congestion, ear symptoms, chest pain, SOB, nausea/vomiting, diarrhea, melena/hematochezia following the colonoscopy, or urinary symptoms. Past History - Past Medical History Allergies/Adverse Reactions: Allergies Allergy/AdvReac Type Severity Reaction Status Date / Time codeine [Codeine] Allergy Severe Verified 04/21/18 22:04 lactose Allergy Severe Verified 04/21/18 22:04 ANIMALS Allergy Severe Swelling Uncoded 04/21/18 22:04 TAPE Allergy Intermediate Uncoded 04/21/18 22:04 Home Medications: Ambulatory Orders Losartan Potassium 50 mg PO BID 04/21/18 Simvastatin 10 mg PO HS 04/21/18 Amlodipine Besylate 10 mg PO DAILY 04/22/18 Alendronate Sodium [Binosto] 70 mg PO WEEKLY 11/11/18 Anemia: No Asthma: No Cancer: No Cardiac Disorders: No CVA: No COPD: No CHF: No Dementia: No Diabetes: No GI Disorders: Yes (ACID REFLUX) Disorders: No HTN: Yes Hypercholesterolemia: Yes Liver Disease: No Seizures: No Thyroid Disease: No - Surgical History Abdominal Surgery: Yes (uterus, rectal , and bladder prolapse repair) Appendectomy: No Cardiac Surgery: No Cholecystectomy: No Lung Surgery: No Neurologic Surgery: No Orthopedic Surgery: Yes (RT SHOULDER SURGERY) - Suicide/Smoking/Psychosocial Hx Smoking Status: No Smoking History: Never smoked Have you smoked in the past 12 months: No Number of Cigarettes Smoked Daily: 0 Information on smoking cessation initiated: No Hx Alcohol Use: No Drug/Substance Use Hx: No Substance Use Type: None Hx Substance Use Treatment: No Review of Systems - Review of Systems Comments:: General: No fevers, no chills, no weight or appetite change, no malaise HEENT: No changes in vision, no changes in hearing, no congestion, no sore throat CV: No chest pain, no palpitations, no LE edema Pulm: No SOB, no cough, no wheezing GI: No nausea or vomiting, no change in bowel habits, no melena : No frequency, no urgency, no dysuria Musc: No back pain, no joint swelling, +recent fall Skin: No rash, no lesions, no erythema Endo: No excessive thirst, no heat/cold intolerance Heme: No unusual bruising or bleeding, no swollen glands Neuro: +Lightheaded, no numbness/tingling, no focal weakness Vasc: No claudication Psych: No recent change in mood, no SI or HI *Physical Exam - Vital Signs Last Vital Signs Temp Pulse Resp BP Pulse Ox 97.9 F 79 16 145/76 100 11/11/18 12:25 11/11/18 12:25 11/11/18 12:25 11/11/18 12:25 11/11/18 12:25 - Physical Exam Comments: General: Comfortable, no acute distress HEENT: PERRL, EOMI, MMM, voice normal, normal neck ROM, no posterior neck tenderness Cards: RRR, no murmur appreciated Pulm: Comfortable on room air, clear to auscultation bilaterally Abd: Soft, nontender, nondistended : No CVA tenderness Back: No bony tenderness, no step-offs or deformities Ext: Atraumatic. No LE edema. ROM intact. Strength 5/5 and equal bilaterally Vasc: Extremities WWP. Palpable radial and pedal pulses bilaterally Skin: Normal color, no rashes or lesions Neuro: A&Ox3, CN grossly intact, normal speech, motor/sensory grossly intact and symmetric Psych: Mood appropriate to situation ED Treatment Course - LABORATORY CBC & Chemistry Diagram: 11/11/18 13:30 11/11/18 13:14 Medical Decision Making - Medical Decision Making 11/11/18 13:17 Radhika Almanza is a 68yo woman with a h/o HTN, HLD, GERD, osteoporosis who presents today with dizziness and a fall on Sunday with a repeat episode of dizziness today. She was referred to the ED by her PMD. - Pt unable to clarify lightheadedness v vertigo. States she felt "funny" during the episodes - Ddx includes vertigo, orthostatic hypotension, less likely TIA. Does not sound suspicious for ACS but will r/o. Benign exam w/ normal neurological exam, no sign of fracture or bony injury - No apparent injury on head or neck exam. Given age, will r/o occult injury. CT head and c-spine - Syncope workup including CBC, CMP, trop, EKG, CXR, UA 11/11/18 15:22 - Labs reviewed. No concerning abnormalities. Trop negative. UA negative - CT head and CT c-spine without acute pathology - EKG completed. NSR with HR 77. No t-wave or ST changes. - Discussed results w/ Ms Iraida. Dizziness may represent benign vertigo, but unable to diagnose definitively. Will d/c home with neurology follow up. Discussed using care when standing, asking for assistance when needed to prevent falls. She states understanding. Discussed with Dr Burgess. Cindi Bethea PGY1 *DC/Admit/Observation/Transfer Diagnosis at time of Disposition: Dizziness - Discharge Dispostion Disposition: HOME Condition at time of disposition: Stable Decision to Admit order: No - Referrals Referrals: Rosalva Graham MD [Staff Physician] - - Patient Instructions Printed Discharge Instructions: DI for Dizziness-Nonvertigo Additional Instructions: Discharge Instructions: You were seen in the ED for dizziness and a fall at home. You had blood tests, a urine test, an EKG, and CT scans of your head and neck. There is no sign of any concerning abnormality. Home Care and Follow Up: - Make sure you are staying well hydrated. Drink extra fluids - Be careful when you stand up. Hold onto something or ask someone for help if needed. You may consider using a cane to help keep your balance if you are becoming dizzy frequently. - If you have muscle pain or discomfort from your fall, you can take acetaminophen (Tylenol) 650mg or ibuprofen (Advil, Motrin) 400mg every 6-8 hours. If you have continued pain or discomfort after taking one of these, they may be alternated every 3-4 hours. For example, if you take acetaminophen at 2pm you may take ibuprofen at 5-6pm. - Make sure you take ibuprofen with food to prevent upset stomach. If you need to take this daily, you should start taking a stomach acid medication such as Pepcid or Xantac in the morning (30-60min before other medications) to help protect your stomach. These are available over the counter. - You have been referred to neurology, Dr Graham, for follow up. Make an appointment within the next 1-2 weeks. - Seek immediate medical care if you have worsening of your symptoms, you become severely nauseated with the dizziness, you have additional falls, you have focal symptoms such as one-sided weakness or numbness, you have any changes to your speech or voice, or you have any other medical emergency. - Post Discharge Activity
[2018-11-11 14:01] LABS: BASO % 0.6 % (0-2.0); HEMOGLOBIN 13.7 GM/dL (10.7-15.3); LYMPH % 9.9 % (8-40); MCHC 33.5 g/dl (32.0-36.0); MEAN CELL VOLUME 89.5 fl (80-96); MEAN PLT VOLUME 9.5 fl (7.5-11.1); NEUT % 83.5 % (42.8-82.8); PLATELET COUNT 259 K/MM3 (134-434); RBC 4.58 M/mm3 (3.60-5.2); RDW 13.3 % (11.6-15.6); WHITE BLOOD COUNT 9.6 K/mm3 (4.0-10.0)
[2018-11-11 14:10] LABS: PH,URINE 6.5 (5.0-8.0); URINE APPEARANCE CLEAR; URINE BILIRUBIN NEGATIVE (NEGATIVE); URINE COLOR YELLOW; URINE GLUCOSE (UA) NEGATIVE (NEGATIVE); URINE KETONE NEGATIVE (NEGATIVE); URINE LEUK ESTERASE TRACE (NEGATIVE); URINE NITRITE NEGATIVE (NEGATIVE); URINE PROTEIN NEGATIVE (NEGATIVE); URINE UROBILINOGEN 0.2 mg/dL (0.2-1.0)
[2018-11-11 14:50] LABS: ALBUMIN 4.2 g/dl (3.4-5.0); ALK PHOS 90 U/L (45-117); ANION GAP 6 MMOL/L (8-16); BILIRUBIN,TOTAL 0.9 mg/dL (0.2-1); BLOOD UREA NITROGEN 13 mg/dL (7-18); CALCIUM 9.4 mg/dL (8.5-10.1); CHLORIDE 105 mmol/L (98-107); CO2 26 mmol/L (21-32); CREATININE 0.6 mg/dL (0.55-1.3); GLUCOSE,RANDOM 94 mg/dL (74-106); POTASSIUM 3.9 mmol/L (3.5-5.1); SGOT/AST 17 U/L (15-37); SGPT/ALT 25 U/L (13-61); SODIUM 138 mmol/L (136-145)
--- NOTE | 2018-11-11 15:09 | EKG ---
Test Reason : Blood Pressure : / mmHG Vent. Rate : 077 BPM Atrial Rate : 077 BPM P-R Int : 138 ms QRS Dur : 080 ms QT Int : 384 ms P-R-T Axes : 060 054 066 degrees QTc Int : 434 ms NORMAL SINUS RHYTHM NORMAL ECG WHEN COMPARED WITH ECG OF 22-APR-2018 11:13, T WAVE VARIATION Confirmed by SHERRIE ADAMSON MD ([id number]) on 11/11/2018 3:08:55 PM Referred By: Confirmed By:SHERRIE ADAMSON MD
[2018-11-11 15:16] LABS: URINE RBC 0.3 /hpf (0-4)
[2018-11-11 15:17] LABS: EPI CELLS 2.5 /HPF (0-5/HPF); URINE BACTERIA 56.4 /hpf (NEGATIVE); URINE WBC 1.8 /hpf (0-5)
[2018-11-11 16:54] VITALS: BP 137/68; PULSE 88; TEMP 98.5
== END 2018-11-11 16:00 | disposition home or self-care (01) ==
LOC: JER 12:10
DX: R42 Dizziness and giddiness (principal); S09.8XXA Other specified injuries of head, initial encounter; W10.8XXA Fall (on) (from) other stairs and steps, initial encounter; Y93.89 Activity, other specified; Y92.89 Other specified places as the place of occurrence of the external cause; Y99.8 Other external cause status; I10 Essential (primary) hypertension; E78.00 Pure hypercholesterolemia, unspecified; K21.9 Gastro-esophageal reflux disease without esophagitis; M81.8 Other osteoporosis without current pathological fracture
CPT/HCPCS: 36415; 70450-TC; 72125-TC; 80053; 81003; 82550; 84484; 85025; 93005; 93010; 99283-25

== ENCOUNTER 2022-01-24 17:11 | Inpatient (IN) | payer OTHER ==
[2022-01-24] MEDS ORDERED: ACETAMINOPHEN 1000 MG/100 ML BAG IVPB ONE (20:42)
[2022-01-24] MEDS ORDERED: ACETAMINOPHEN INJECTION 100 ML IVPB ONE (20:45)
[2022-01-24 21:02] LABS: BASO % 0.3 % (0-2.0); EOS % 0.7 % (0-4.5); HEMATOCRIT 38.8 % (32.4-45.2); HEMOGLOBIN 13.6 GM/dL (10.7-15.3); LYMPH % 10.5 % (8-40); MCH 29.6 pg (25.7-33.7); MCHC 34.9 g/dl (32.0-36.0); MEAN CELL VOLUME 84.7 fl (80-96); MEAN PLT VOLUME 8.9 fl (7.5-11.1); MONO % 9.1 % (3.8-10.2); NEUT % 79.4 % (42.8-82.8); PLATELET COUNT 312 10^3/uL (134-434); RBC 4.59 M/mm3 (3.60-5.2); RDW 12.3 % (11.6-15.6); WHITE BLOOD COUNT 10.8 K/mm3 (4.0-10.0)
[2022-01-24 21:20] LABS: CHLORIDE 78 mmol/L (98-107)
[2022-01-24 21:23] LABS: ALBUMIN 3.9 g/dl (3.4-5.0); BLOOD UREA NITROGEN 10.6 mg/dL (7-18); CO2 29 mmol/L (21-32); GLUCOSE,RANDOM 118 mg/dL (74-106)
[2022-01-24 21:26] LABS: CREATININE 0.7 mg/dL (0.55-1.3); SGPT/ALT 23 U/L (13-61)
[2022-01-24 21:27] LABS: SGOT/AST 21 U/L (15-37)
[2022-01-24 21:28] LABS: BILIRUBIN,TOTAL 1.4 mg/dL (0.2-1); TOT PROT 7.5 g/dl (6.4-8.2)
[2022-01-24 21:29] LABS: ALK PHOS 94 U/L (45-117)
[2022-01-24 21:44] LABS: ANION GAP 12 MMOL/L (8-16); SODIUM 119 mmol/L (136-145)
[2022-01-24] MEDS ORDERED: SODIUM CHLORIDE 0.9% 500 ML INFUS.BAG IV ONE (21:57)
[2022-01-25 00:41] LABS: BLOOD UREA NITROGEN 10.6 mg/dL (7-18); CALCIUM 9.1 mg/dL (8.5-10.1)
[2022-01-25] MEDS ORDERED: hydrALAZINE HCL 20 MG/ML VIAL IVPUSH ONE (00:41)
[2022-01-25] MEDS ORDERED: SIMETHICONE 80 MG TAB.CHEW (FP) PO ONE (00:41)
[2022-01-25] MEDS ORDERED: amLODIPine BESYLATE 10 MG TABLET (FP) PO ONE (00:42)
[2022-01-25 00:45] LABS: CREATININE 0.6 mg/dL (0.55-1.3)
[2022-01-25] MEDS ORDERED: amLODIPine BESYLATE 10 MG TABLET (FP) ONE (01:02)
[2022-01-25] MEDS ORDERED: hydrALAZINE HCL 20 MG/ML VIAL ONE (01:02)
[2022-01-25] MEDS ORDERED: SIMETHICONE 80 MG TAB.CHEW (FP) ONE (01:02)
[2022-01-25] MEDS ORDERED: hydrALAZINE HCL 20 MG/ML VIAL IVPUSH PRN (01:10)
[2022-01-25] MEDS ORDERED: SODIUM CHLORIDE 1,000 ML IV SCH (01:45)
[2022-01-25] MEDS ORDERED: POTASSIUM CHLORIDE TABS 20 MEQ TABLET.ER (FP) PO ONE (03:00)
[2022-01-25 06:39] VITALS: BMI 23.0
[2022-01-25] MEDS: INSULIN SLIDING SCALE (NOVOLOG) 1 VIAL SQ SCH ×4 (06:43→21:33)
[2022-01-25] MEDS ORDERED: amLODIPine BESYLATE 10 MG TABLET (FP) PO SCH (07:00)
[2022-01-25 07:18] LABS: BASO % 0.3 % (0-2.0); EOS % 0.4 % (0-4.5); HEMATOCRIT 40.1 % (32.4-45.2); HEMOGLOBIN 13.9 GM/dL (10.7-15.3); LYMPH % 5.4 % (8-40); MCH 29.4 pg (25.7-33.7); MCHC 34.7 g/dl (32.0-36.0); MEAN CELL VOLUME 84.8 fl (80-96); MEAN PLT VOLUME 9.3 fl (7.5-11.1); MONO % 6.1 % (3.8-10.2); NEUT % 87.8 % (42.8-82.8); PLATELET COUNT 297 10^3/uL (134-434); RBC 4.72 M/mm3 (3.60-5.2); RDW 12.2 % (11.6-15.6); WHITE BLOOD COUNT 13.1 K/mm3 (4.0-10.0)
[2022-01-25 07:44] LABS: ALBUMIN 3.7 g/dl (3.4-5.0); BLOOD UREA NITROGEN 9.7 mg/dL (7-18); CALCIUM 8.8 mg/dL (8.5-10.1); CREATININE 0.5 mg/dL (0.55-1.3)
[2022-01-25 07:46] LABS: TOT PROT 7.1 g/dl (6.4-8.2)
[2022-01-25 07:49] LABS: BILIRUBIN,TOTAL 1.2 mg/dL (0.2-1)
[2022-01-25] MEDS: amLODIPine BESYLATE 10 MG TABLET (FP) PO SCH ×2 (10:00)
[2022-01-25] MEDS: ENOXAPARIN NA (PORCINE) 40 MG/0.4 ML DISP.SYRIN SQ SCH (10:00)
[2022-01-25 20:17] LABS: EPI CELLS 10 /uL (0-25.1); HYALINE CASTS 0 /uL (0-3.1); PH,URINE 6.5 (5.0-8.0); URINE APPEARANCE CLEAR; URINE BACTERIA 64 /uL (0-1359); URINE BILIRUBIN NEGATIVE (NEGATIVE); URINE COLOR YELLOW; URINE GLUCOSE (UA) NEGATIVE (NEGATIVE); URINE KETONE NEGATIVE (NEGATIVE); URINE LEUK ESTERASE 1+ (NEGATIVE); URINE NITRITE NEGATIVE (NEGATIVE); URINE PROTEIN NEGATIVE (NEGATIVE); URINE RBC 11 /uL (0-23.9); URINE UROBILINOGEN 0.2 mg/dL (0.2-1.0); URINE WBC 13 /uL (0-25.8)
[2022-01-25] MEDS ORDERED: LOSARTAN POTASSIUM 50 MG TABLET PO SCH (22:00)
[2022-01-26] MEDS: INSULIN SLIDING SCALE (NOVOLOG) 1 VIAL SQ SCH ×2 (06:01→11:58)
[2022-01-26 07:29] LABS: CALCIUM 8.9 mg/dL (8.5-10.1)
[2022-01-26 07:30] LABS: ALBUMIN 3.4 g/dl (3.4-5.0); BLOOD UREA NITROGEN 15.1 mg/dL (7-18)
[2022-01-26 07:32] LABS: URIC ACID 4.3 mg/dL (2.6-7.2)
[2022-01-26 07:33] LABS: CREATININE 0.6 mg/dL (0.55-1.3)
[2022-01-26 07:34] LABS: TOT PROT 6.4 g/dl (6.4-8.2)
[2022-01-26 07:35] LABS: BILIRUBIN,TOTAL 1.1 mg/dL (0.2-1)
[2022-01-26] MEDS ORDERED: POTASSIUM CHLORIDE TABS 20 MEQ TABLET.ER (FP) PO ONE (10:50)
[2022-01-26] MEDS: ENOXAPARIN NA (PORCINE) 40 MG/0.4 ML DISP.SYRIN SQ SCH (12:01)
[2022-01-26] MEDS: amLODIPine BESYLATE 10 MG TABLET (FP) PO SCH (12:06)
[2022-01-26 14:42] VITALS: BP 115/67; PULSE 73; TEMP 98
== END 2022-01-26 16:43 | disposition home or self-care (01) | DRG 641 ==
LOC: JER 17:11 → JERBED 22:15 → J4W 01-25 05:37
PROVIDERS: ADMIT Internal Medicine; ATTEND Nurse Practitioner Family
DX: E87.1 Hypo-osmolality and hyponatremia (principal); I24.8 Other forms of acute ischemic heart disease; I16.0 Hypertensive urgency; I10 Essential (primary) hypertension; E78.5 Hyperlipidemia, unspecified; K21.9 Gastro-esophageal reflux disease without esophagitis; M81.0 Age-related osteoporosis without current pathological fracture; F41.9 Anxiety disorder, unspecified; R77.8 Other specified abnormalities of plasma proteins
CPT/HCPCS: 36415; 70450-TC; 80048; 80053; 80061; 81003; 82533; 82962; 83036; 83735; 83930; 83935; 84100; 84300; 84443; 84484; 84550; 85025; 93005; 93010; 93306-TC; 93351; 99285-25; C9803-CS; U0003; U0005